=== PATIENT | female | born 1980 | race Caucasian/White ===

== ENCOUNTER 2018-06-29 14:31 | Emergency (ER) | payer SELFPAY ==
[~2018-06-29] VITALS: Ht 165.1 cm; Wt 66.2 kg
[2018-06-29 14:38] VITALS: BP 100/76
[2018-06-29] MEDS ORDERED: IBUPROFEN 800 MG TAB PO ONE (16:30)
== END 2018-06-29 16:35 | disposition home or self-care (01) ==
LOC: ER 14:31
DX: S50.01XA Contusion of right elbow, initial encounter (principal); W23.0XXA Caught, crushed, jammed, or pinched between moving objects, initial encounter; Y93.89 Activity, other specified; Y99.8 Other external cause status; Y92.89 Other specified places as the place of occurrence of the external cause
CPT/HCPCS: 73080